=== PATIENT | male | born 1995 | race Caucasian/White ===

== ENCOUNTER 2022-07-27 13:27 | Emergency (ER) | payer MEDICAID ==
[~2022-07-27] VITALS: Ht 182.9 cm; Wt 106.0 kg
[2022-07-27 13:29] VITALS: BP 159/98
[2022-07-27] MEDS ORDERED: PREDNISONE 20MG TABLET PO ONE (14:00)
[2022-07-27] MEDS ORDERED: IPRATROPIUM/ALBUTEROL 0.5-3(2.5)MG/3ML NEB HHN ONE (14:00)
[2022-07-27] MEDS ORDERED: ALBU6.7H3 INH (15:44)
[2022-07-27] MEDS ORDERED: GUAI-450 MT (15:44)
[2022-07-27] MEDS ORDERED: P20 MT (15:44)
== END 2022-07-27 16:10 | disposition home or self-care (01) ==
LOC: ER 13:42
DX: J06.9 Acute upper respiratory infection, unspecified (principal)
CPT/HCPCS: 71045; 87426; 87804; 93005; 94640; 99285; C9803; J7512; Z7610